=== PATIENT | male | born 1950 | race Caucasian/White ===

== ENCOUNTER 2017-07-17 13:30 | Emergency (ER) | payer MEDICARE, SELFPAY ==
[2017-07-17 13:31] VITALS: BP 151/78; PULSE 70; RESP 18; TEMP 36.7; O2SAT 98; BMI 35.2
--- NOTE | 2017-07-17 13:47 | PCA ---
PRINTED OLD EKG
--- NOTE | 2017-07-17 13:56 | EKG12_ITS ---
Test Reason : CP Blood Pressure : / mmHG Vent. Rate : 068 BPM Atrial Rate : 068 BPM P-R Int : 188 ms QRS Dur : 114 ms QT Int : 370 ms P-R-T Axes : 033 -34 037 degrees QTc Int : 393 ms Normal sinus rhythm Left axis deviation Poor R wave progression Abnormal ECG Confirmed by MIGUEL ANGEL BLANKENSHIP, KRYSTLE ([id number]), development editor MILA WEINBERG ([id number] on 07/21/2017 10:16:56 AM Referred By: FARHEEN/LANEY Confirmed By:KRYSTLE MICHELLE MD
[2017-07-17 14:03] VITALS: O2SAT 96
[2017-07-17 14:07] LABS: Absolute Lymphocyte Count 1.32 X10^3/ul (0.83-4.51); Basophil# 0.02 X10^3/uL; Basophil% 0.4 % (0-1); Eosinophil# 0.08 X10^3/uL; Eosinophils% 1.6 % (0-5); Hematocrit 50.1 % (40-54); Hemoglobin 17.4 g/dl (13.0-16.5); Lymphocyte # 1.32 X10^3/ul (4.0); Lymphocyte % 27.2 % (19-41); Mean Corp Hgb Conc 34.7 g/gl (32-36); Mean Corpuscular Hgb 32.6 pg (27.0-32.0); Mean Platelet Vol. 10.6 fl (6.2-12.0); Monocyte# 0.42 X10^3/uL; Monocyte% 8.6 % (0-10); Neutrophil # 3.01 X10^3/uL (2.7-7.7); Platelet Count 170 K/mm3 (150-450); RBC Distribution Width CV 12.7 % (11.6-14.6); Red Blood Count 5.33 M/mm3 (4.6-6.2); White Blood Count 4.9 K/mm3 (4.4-11.0)
[2017-07-17 14:09] LABS: POSITIVE COUNT NO; POSITIVE DIFFERENTIAL NO; POSITIVE MORPHOLOGY NO
[2017-07-17 14:16] LABS: Anion Gap 10 (5-15); BUN 16 mg/dL (7-18); BUN/Creat Ratio 14.3 RATIO (10-20); Calcium,Total 9.3 mg/dL (8.5-10.1); Chloride 104 mmol/L (98-107); Creatinine, Serum 1.12 mg/dL (0.70-1.30); EST Glomerular Filtration Rate 69 mL/min (>60); Est Glom Filt Rate - Afr Amer 84 mL/min (>60); Estimated Creatinine Clearance 69.29 ml/min; Glucose 111 mg/dL (74-106); Potassium 4.2 mmol/L (3.5-5.1); Sodium Level 140 mmol/L (136-145)
--- NOTE | 2017-07-17 14:18 | RAD_ITS ---
STUDY: X-RAY CHEST REASON FOR EXAM: Male, 66 years old. Chest pain. Dizziness and blurred vision. TECHNIQUE: PA and lateral views of the chest. COMPARISON: None. FINDINGS: EKG electrodes are seen. The lungs are clear and expanded. Scattered calcified granulomas. There is no demonstrated pleural abnormality. Normal size heart. Normal mediastinum and steven. Normal visualized pulmonary arteries. Normal visualized aortic arch and descending thoracic aorta. There are degenerative changes of the visualized thoracic spine. Normal visualized ribs, clavicles, and shoulders. There is no demonstrated abnormality of the visualized soft tissue structures of the upper abdomen. RAD/Chest PA and Lateral IMPRESSION: No acute abnormality is seen. Electronically Signed: Yash Hudson MD at 14:31 EDT Tel [phone], Service support ,
--- NOTE | 2017-07-17 15:29 | ED.VISSUMM ---
- ER Visit Summary Date of Service: 07/17/17 Chief Complaint: Chest pain History of Present Illness: The patient is a 66 M who states that he was in line at a store weight and [employer] when his eyes got uncoordinated. He states that he felt like he might pass out. Eventually is able to drive home where he developed approximately 5 minutes of a tingling in his left chest. Denies any shortness of breath palpitations heart raising pleuritic chest pain nausea vomiting. States he had a stress test at [facility] 1 year ago. He states he had a similar episode couple weeks ago when he was sitting at the computer. 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 He is treated for high cholesterol sleep apnea and low T. Physical Examination: Afebrile vital signs are stable Gen: Well-nourished well-developed Head: Normocephalic atraumatic Eyes: Perrl EOMI ENT: TMs clear no rhinorrhea moist mucous membranes Neck: Supple no lymphadenopathy no JVD nontender CVS: Regular rate rhythm no murmurs normal S1-S2 Respiratory: No distress clear to auscultation bilaterally chest nontender Abdomen: Soft nontender nondistended normal bowel sounds no masses Back: Nontender Extremity: Nontender no edema Skin: Normal color no rash Neuro: alert orientated ?3 CN II-XII intact normal strength sensation reflexes gait cerebellar Psych: Normal affect normal mood Test Results: EEG shows a sinus rhythm with a rate of 68 CBC and chemistry showed a glucose of 111. Troponin less than 0.015. Chest x-ray negative. Emergency Department Course and Treatment: Patient has had no events on the monitor. His MILDRED score is 1. His heart score is 2. We talked about doing a second delta troponin and the patient declined. Patient will follow up with his doctor or return if worsening or concerns. Symptom free at the time of discharge. Impression: 1. Near syncope 2. Chest pain This note was generated with [employer] dictation software. It may contain incorrect words, spelling, and punctuation that were not noted in review of the chart prior to signing ED Disposition - Plan for ED Patient: Disposition: Home or Assisted Living Chief Complaint: Chest Pain Instructions: ED Near Syncope Unkn Additional Instructions: Follow up with your pcp. Return if worsening or concerns
--- NOTE | 2017-07-17 15:38 | ED.DCSUM_ITS ---
- ER Visit Summary Date of Service: 07/17/17 Chief Complaint: Chest pain History of Present Illness: The patient is a 66 M who states that he was in line at a store weight and [employer] when his eyes got uncoordinated. He states that he felt like he might pass out. Eventually is able to drive home where he developed approximately 5 minutes of a tingling in his left chest. Denies any shortness of breath palpitations heart raising pleuritic chest pain nausea vomiting. States he had a stress test at [facility] 1 year ago. He states he had a similar episode couple weeks ago when he was sitting at the computer. 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 He is treated for high cholesterol sleep apnea and low T. Physical Examination: Afebrile vital signs are stable Gen: Well-nourished well-developed Head: Normocephalic atraumatic Eyes: Perrl EOMI ENT: TMs clear no rhinorrhea moist mucous membranes Neck: Supple no lymphadenopathy no JVD nontender CVS: Regular rate rhythm no murmurs normal S1-S2 Respiratory: No distress clear to auscultation bilaterally chest nontender Abdomen: Soft nontender nondistended normal bowel sounds no masses Back: Nontender Extremity: Nontender no edema Skin: Normal color no rash Neuro: alert orientated ?3 CN II-XII intact normal strength sensation reflexes gait cerebellar Psych: Normal affect normal mood Test Results: EEG shows a sinus rhythm with a rate of 68 CBC and chemistry showed a glucose of 111. Troponin less than 0.015. Chest x-ray negative. Emergency Department Course and Treatment: Patient has had no events on the monitor. His MILDRED score is 1. His heart score is 2. We talked about doing a second delta troponin and the patient declined. Patient will follow up with his doctor or return if worsening or concerns. Symptom free at the time of discharge. Impression: 1. Near syncope 2. Chest pain This note was generated with [employer] dictation software. It may contain incorrect words, spelling, and punctuation that were not noted in review of the chart prior to signing ED Disposition - Plan for ED Patient: Disposition: Home or Assisted Living Chief Complaint: Chest Pain Instructions: ED Near Syncope Unkn Additional Instructions: Follow up with your pcp. Return if worsening or concerns
[2017-07-17 15:44] VITALS: BP 143/83; PULSE 56; PULSE 59; RESP 20; RESP 21; O2SAT 95
== END 2017-07-17 15:47 | disposition home or self-care (01) ==
PROVIDERS: Emergency Provider Emergency Medicine
DX: R55 Syncope and collapse (principal); R07.9 Chest pain, unspecified; E78.00 Pure hypercholesterolemia, unspecified; G47.30 Sleep apnea, unspecified; Z79.899 Other long term (current) drug therapy
CPT/HCPCS: 71046; 80048; 84484; 85025; 93005; 99284; A4216